=== PATIENT | male | born 1950 | race Caucasian/White ===

== ENCOUNTER 2016-08-27 06:21 | Day surgery (SDC) | payer MEDICARE, OTHER ==
[2016-08-27] VITALS (12 sets, daily range): BP systolic 112–136; BP diastolic 63–79; PULSE 66–79; RESP 14–22
[~2016-08-27] VITALS: Ht 170.2 cm; Wt 81.8 kg
[~2016-08-27 06:21] MED LIST: CARV12.579 PO; LISI-313 PO; MTF1000T PO; OMEP-28 PO; RANI15SY PO
[2016-08-27] MEDS ORDERED: HEPARIN 1000 UNITS/ML 10 ML INJ ONE (06:32)
[2016-08-27] MEDS ORDERED: LIDOCAINE 1% (MDV) 20 ML INJ ONE (06:32)
[2016-08-27] MEDS ORDERED: VERAPAMIL 5 MG INJ ONE (06:33)
[2016-08-27] MEDS ORDERED: NITROGLYCERIN (IC) 100 MCG/ML INJ ONE (06:33)
[2016-08-27 07:08] LABS: ADD SCAN DIFF NO
[2016-08-27] MEDS ORDERED: HYDR12.53 PO (07:08)
[2016-08-27] MEDS ORDERED: ALBU8.5H3 INH (07:08)
[2016-08-27] MEDS ORDERED: ASPI-664 PO (07:08)
[2016-08-27] MEDS ORDERED: LISI1TAB6 PO (07:08)
[2016-08-27] MEDS ORDERED: TRAM50TA2 PO (07:08)
[2016-08-27] MEDS ORDERED: ATOR40TA68 PO (07:08)
[2016-08-27] MEDS ORDERED: CARV25TA79 PO (07:08)
[2016-08-27] MEDS ORDERED: OMEP40CA6 PO (07:08)
[2016-08-27] MEDS ORDERED: IBUP-1542 PO (07:08)
[2016-08-27] MEDS ORDERED: ADV25050 INHALATION (07:08)
[2016-08-27] MEDS ORDERED: MTF1000T PO (07:08)
[2016-08-27 07:12] LABS: BASOPHIL # 0.1 10^3/ul (0.0-0.1); BASOPHILS % 0.4 % (0.0-2.0); EOSINOPHILS # 0.2 10^3/ul (0.0-0.5); EOSINOPHILS % 1.6 % (0.0-7.0); HEMATOCRIT 44.1 % (42.0-52.0); LYMPHOCYTES # 4.9 10^3/ul (0.8-2.9); MEAN CORPUSCULAR HEMOGLOBIN 30.2 pg (29.0-33.0); MEAN CORPUSCULAR VOLUME 88.7 fl (82.0-101.0); MEAN PLATELET VOLUME 10.4 fl (7.4-10.4); MONOCYTE # 0.7 10^3/ul (0.3-0.9); MONOCYTES % 5.5 % (0.0-11.0); NEUTROPHIL # 6.7 10^3/ul (1.6-7.5); NEUTROPHILS % 53.3 % (39.0-77.0); PLATELET COUNT 164 10^3/UL (140-415); RED BLOOD COUNT 4.97 10^6/ul (4.70-6.10); RED CELL DISTRIBUTION WIDTH 13.6 % (11.5-14.5); WHITE BLOOD COUNT 12.6 10^3/ul (4.8-10.8)
[2016-08-27 07:26] LABS: INR 0.93; PROTIME 12.5 Sec (12.2-14.2)
[2016-08-27 07:27] LABS: PARTIAL THROMBOPLASTIN TIME 26.9 Sec (25.0-35.0)
[2016-08-27 07:37] LABS: CALCIUM 9.3 mg/dl (8.4-10.2); CREATININE 0.85 mg/dl (0.61-1.24); POTASSIUM 4.2 mmol/L (3.5-5.1)
--- NOTE | 2016-08-27 07:47 | RADRPT ---
PROCEDURE: XR Chest. CLINICAL INDICATION: Preop TECHNIQUE: An AP view of the chest was obtained. COMPARISON: Chest x-ray dated 11/11/2007 FINDINGS: There is prominence of the interstitial markings. There is a 3 mm granuloma within the left upper l obe. No pleural effusion or pneumothorax is seen. The cardiomediastinal silhouette is mildly enlar ged . Calcifications are seen within the aortic arch. The osseous structures demonstrate senescent changes. IMPRESSION: 1. Mild prominence of the interstitial markings, may reflect mild underlying interstitial edema or chronic lung changes. 2. 3 mm left upper lobe granuloma. 3. Mild cardiomegaly and aortic atherosclerosis. RPTAT: HH .Kristal Mccallum MD, MD Date Time Electronically viewed and signed by .Kristal Mccallum MD, on 08/27/2016 07:47 .G/
[2016-08-27] MEDS ORDERED: MIDAZOLAM 1 MG/ML 2 ML INJ ONE ×2 (08:18→09:32)
[2016-08-27] MEDS ORDERED: FENTAnyl 50 MCG/ML VIAL ONE (08:19)
[2016-08-27] MEDS ORDERED: IOHEXOL 350MG/ML 50 ML BTL ONE (09:35)
[2016-08-27] MEDS ORDERED: SOD CHLORIDE 0.9% 500 ML ONE (09:36)
[2016-08-27] MEDS ORDERED: CLOPIDOGREL 300 MG TAB ONE (10:00)
[2016-08-27] MEDS ORDERED: ASPIRIN 325 MG TAB ONE (10:00)
[2016-08-27] MEDS ORDERED: SOD CHLORIDE 0.9% 1,000 ML IV SCH (10:52)
--- NOTE | 2016-08-27 10:58 | PDOCDIS ---
Discharge Instructions CONDITION Patient Condition: Good HOME CARE INSTRUCTIONS: Diet Instructions: Low Fat /Cholesterol ACTIVITY: Activity Restrictions: Avoid heavy lifting (not more then 10 pounds for 3 days ) Do not Drive (x 2 days) OTHER ORDERS: Other Orders: hold metformin until friday08/30/16 follow up with Jeff Suarez DO August 27, 2016 10:58
[2016-08-27] MEDS ORDERED: AL HYDROX/MG HYDROX/SIMETH 30 ML CUP PO PRN (11:00)
[2016-08-27] MEDS ORDERED: ACETAMINOPHEN 325 MG TAB PO PRN (11:00)
[2016-08-27] MEDS ORDERED: ONDANSETRON 4 MG INJ IV PRN (11:00)
--- NOTE | 2016-08-27 14:16 | RADRPT ---
Vent Rate: 73 bpm RR Interval: 0 msec WA Interval: 184 msec QRS Duration: 104 msec QT Interval: 394 msec QTC Interval: 434 msec P-R-T Shiro: 64 - 47 - 78 degrees Normal sinus rhythm Normal ECG Electronically Signed By: Jeff Smith [id number]
--- NOTE | 2016-08-28 08:06 | CARRPT ---
DATE OF PROCEDURE: 08/27/2016 PROCEDURES: 1. Distal abdominal aortogram and bilateral lower extremity runoff. 2. Second order catheter placement. 3. Percutaneous intervention of the right common iliac with balloon angioplasty and stenting with a 7 mm x 27 mm BARD balloon expandable covered stent. 4. Bilateral femoral artery arterial access. PATIENT HISTORY: This is a patient with history of coronary artery disease, diabetes, tobacco use, presents with lifestyle limiting claudication, abnormal ABIs, more so on the right side. FINDINGS: 1. Distal abdominal aorta demonstrated aneurysmal segments with diffuse atherosclerosis. 2. Left common iliac demonstrates an ostial 20% stenosis, mid 20% diffuse stenosis of the external iliac. The left common femoral with 10% diffuse stenosis. The left SFA with proximal 10% stenosis, mid 20% stenosis. Proximal left popliteal with 40% stenosis. Below the knee demonstrates occluded anterior tibial artery with patent posterior tibial and peroneal artery, with 30 % diffuse disease of the peroneal, 20% stenosis in the posterior tibial. 3. Right side demonstrates right common iliac has an ostial 20% stenosis and then a mid- 90% stenosis. The external iliac on the right demonstrated mid 20% stenosis. Right common femoral with 10% diffuse stenosis. The right SFA with mid 10% stenosis and distal 20% stenosis. The right popliteal 50% stenosis. Right below the knee with an 80% proximal anterior tibial stenosis, 30% diffuse proximal perineal stenosis and patent posterior tibial. The peroneal and the posterior tibial are patent down to the ankle. DESCRIPTION OF PROCEDURE: The patient was brought to the microbiology lab assistant after informed consent. The patient was prepped and draped as per protocol. The patient had worsening STEVE on the right side, so left femoral artery access was obtained using a micropuncture and a 5 Palestinian sheath with ultrasound guidance. Selective DSA angiogram was performed of the left lower extremity and then an Omniflush to the distal abdominal aorta and did an abdominal aortogram with bilateral iliacs and common femorals. This demonstrated there is severe 90% stenosis in the right common iliac. With a rim catheter was selectively engaged in the right common iliac, segmental DSA angiograms were performed of the right-sided as well as down to the ankle. Given severe stenosis in the right iliac, access was obtained in the right femoral artery with a 6-Palestinian sheath, an ultrasound guidance and a micropuncture kit. Once access was obtained and confirmed with fluoroscopy, heparin was given. The lesion was crossed with an angled Glidewire and next predilated with a 4.0 compliant balloon. The area was then stented with a Bard 7 x 27 mm covered balloon expandable stent. This was postdilated at high pressure. There was an excellent angiographic result with no evidence of dissection, less than 10% residual stenosis. All catheters and wires were removed. A Perclose closure device was used for bilateral groin closure. There were no immediate complications. DIAGNOSES: 1. Lifestyle limiting claudication. 2. Obstructive peripheral arterial disease. COMPLICATIONS: None. ESTIMATED BLOOD LOSS: Minimal. RECOMMENDATIONS: Smoking cessation, aggressive medical management. Dual antiplatelet therapy for minimum of 1 month given stent placement. Hold metformin for a minimum of 48 hours. Findings and recommendations were discussed with the patient in detail. Dictated By: KATTY CORONA/ELVIA Conf#: [id number] DID#: [id number]
--- NOTE | 2016-08-30 11:44 | HP ---
Date/Time of Note Date/Time of Note DATE: 08/30/16 TIME: 11:38 Assessment/Plan VTE Prophylaxis VTE Prophylaxis Intervention: ambulation Lines/Catheters IV Catheter Type (from Nrsg): Peripheral IV Assessment/Plan Assessment/Plan Lifestyle limiting cladif CAD HTN -plan for peripheral angiogram. Risks discussed and agree to proceed. HPI/ROS Admit Date/Time Admit Date/Time 08/27/16 Hx of Present Illness Pt with lifestyle limiting claudif and abn STEVE for peripheral angio ROS 12 point ROS performed PMH/Family/Social Past Medical History Medical History: coronary artery disease, hypertension Social History Smoking Status: Current every day smoker Exam/Review of Systems Vital Signs Vitals Vital Signs Date Time Temp Pulse Resp B/P Pulse Ox O2 Delivery O2 Flow Rate FiO2 08/27/16 12:30 97.4 74 20 134/63 97 Room Air Exam Constitutional: alert, oriented Head: normocephalic Neck: supple Respiratory: clear to auscultation, normal air movement Cardiovascular: regular rate and rhythm Gastrointestinal: bowel sounds, non-tender, soft Extremities: other (no edema) Labs Result Diagram: 08/27/16 0703 08/27/16 0703 Jeff Smith DO August 30, 2016 11:44
== END 2016-08-27 16:30 | disposition home or self-care (01) ==
LOC: SDS 06:21
PROVIDERS: ATTEND Internal Medicine Cardiovascular Disease
DX: I73.9 Peripheral vascular disease, unspecified (principal); I25.10 Atherosclerotic heart disease of native coronary artery without angina pectoris; I10 Essential (primary) hypertension
CPT/HCPCS: 37220; 71010; 75630; 80048; 82962; 85025; 85610; 85730; 93005; C1725; C1760; C1769; C1887; C1894; J1644; J2250; J3010; J7040; Q9967

== ENCOUNTER 2017-04-25 13:40 | Emergency (ER) | END 2017-04-25 18:42 | disposition home or self-care (01) ==

== ENCOUNTER 2017-07-03 11:36 | Day surgery (SDC) | END 2017-07-03 19:02 | disposition home or self-care (01) ==